=== PATIENT | male | born 1975 | race Two or more races ===

== ENCOUNTER 2020-01-03 08:45 | Emergency (ER) | payer SELFPAY ==
[~2020-01-03] VITALS: Ht 162.6 cm; Wt 56.8 kg
[2020-01-03 08:48] VITALS: BP 121/71
[2020-01-03] MEDS: LORAZEPAM 0.5MG TABLET PO NR (09:39)
== END 2020-01-03 10:21 | disposition home or self-care (01) ==
LOC: ER 08:45
DX: F12.180 Cannabis abuse with cannabis-induced anxiety disorder (principal); R00.2 Palpitations
CPT/HCPCS: 71045; 93005; 99283